=== PATIENT | female | born 1945 | race African-American/Black ===

== ENCOUNTER 2018-12-16 14:03 | Outpatient (CLI) | payer MEDICARE, BC ==
[~2018-12-16 14:03] MED LIST: AMLODIPINE BESY10 MG ORAL; BP MED; BYSTOLIC2.5 MG ORAL; DEXILANT60 MG ORAL; INDAPAMIDE2.5 MG ORAL; LOSARTAN POTASS50 MG ORAL; NEXIUM20 MG ORAL; SIMVASTATIN5 MG PO; SUCRALFATE1 GM ORAL
--- NOTE | 2018-12-16 14:34 | General Progress Note ---
Assessment/Plan Problem List: (1) HTN (hypertension) ICD Codes: I10 - HTN (hypertension) SNOMED: 97161172 (2) Diverticula of colon ICD Codes: K57.30 - Diverticulosis of large intestine without perforation or abscess without bleeding SNOMED: 469018085 (3) GERD (gastroesophageal reflux disease) ICD Codes: K21.9 - GERD (gastroesophageal reflux disease) SNOMED: 018801745 (4) Hemorrhoid ICD Codes: K64.9 - Unspecified hemorrhoids SNOMED: 24848484 (5) Tubular adenoma ICD Codes: D36.9 - Tubular adenoma SNOMED: 043552176 (6) History of colon polyps ICD Codes: Z86.010 - Personal history of colonic polyps SNOMED: 470515272 Assessment/Plan: NDICATION: Screening colonoscopy. The procedure, risks, benefits, and possible consequences, including hemorrhage, aspiration, perforation and infection, and alternative treatments, were explained to the patient/legal guardian by Dr. Slade Hernandes and the patient/legal guardian understood and accepted these risks. DESCRIPTION OF PROCEDURE: After informed consent was obtained and the patient was adequately sedated, first rectal exam was performed, which was normal. Then, the scope was advanced from the rectum into the cecum documented by the appendiceal orifice, ileocecal valve, and right upper quadrant palpation. Quality of prep was very good. The patient had some scattered diverticulosis without any obvious mass, polyp, or any other pathology. Retroflexion of rectum showed evidence of few medium size nonbleeding internal hemorrhoids. SUMMARY OF FINDINGS: 1. Scattered diverticulosis. 2. Internal hemorrhoids. plan colonoscopy next week Subjective ROS Limited/Unobtainable: Yes Allergies: Coded Allergies: No Known Allergies (Unverified , 07/22/12) Objective General Appearance: alert EENT: normal ENT inspection Neck: supple Cardiovascular: normal rate Respiratory/Chest: decreased breath sounds Abdomen: normal bowel sounds, non tender, soft Extremities: non-tender Slade Hernandes MD Dec 16, 2018 14:34
== END 2018-12-16 16:03 | disposition home or self-care (01) ==
LOC: PAN 14:03
DX: K57.30 Diverticulosis of large intestine without perforation or abscess without bleeding (principal); I10 Essential (primary) hypertension; K21.9 Gastro-esophageal reflux disease without esophagitis; K64.9 Unspecified hemorrhoids; D36.9 Benign neoplasm, unspecified site; Z86.010 Personal history of colon polyps